=== PATIENT | female | born 1940 | race Caucasian/White ===

== ENCOUNTER → 2016-03-04 | Outpatient (CLI) | payer MEDICARE ==
[~2016-03-04] MED LIST: ACETAMINOPHEN-H1 TA2 PO; B-1100 M1 PO; B12,B-12,B 12500 MC1 PO; BACTRIM DS 8001 TA1 PO; CARAFATE1 GM/10 ML PO; CELEXA20 MG PO; CELEXA40 MG PO; COLACE100 MG PO; COREG3.125 MG PO; COUMADIN1 M1 PO; Coumadin3 MG PO; Coumadin5 MG PO; ENOXAPARIN80 MG/0.2 SC; HYDROCODONE BIT1 T11 PO; LASIX20 MG PO; LOVENOX100 MG/1 M PO; Lovenox40 MG/0.4 SC; METOPROLOL50 MG PO; MOM30 M1 PO; MOTRIN800 MG PO; NORTRIPTYLINE10 MG PO; NORVASC2.5 MG PO; PERCOCET 325 MG1 TA3 PO; PERCOCET 325 MG1 TA4 PO; PRILOSEC20 M1 PO; PRILOSEC20 MG PO; PRILOSEC40 M1 PO; PRILOSEC40 MG PO; VESICARE5 MG PO; VICODIN 5-3001 EACH PO; VICODIN 5/500 505 MG PO; XARE20MG PO; XARELTO10 PO; ZANAFLEX4 MG PO
== END | disposition home or self-care (01) ==
LOC: CARD 07:27
DX: I48.91 Unspecified atrial fibrillation (principal); Z79.899 Other long term (current) drug therapy

== ENCOUNTER → 2016-12-03 | Outpatient (CLI) | payer MEDICARE | END | disposition home or self-care (01) | LOC: RAD 18:45 | DX: M19.011 Primary osteoarthritis, right shoulder (principal); Z98.890 Other specified postprocedural states ==

== ENCOUNTER 2017-03-10 13:48 | Inpatient (IN) | payer MEDICARE ==
[2017-03-10] VITALS (8 sets, daily range): BP systolic 124–142; BP diastolic 33–61
[~2017-03-10] VITALS: Ht 157 cm; Wt 80.7 kg
[2017-03-10 14:40] LABS: HEMATOCRIT 38.1 % (37.0-47.0); HEMOGLOBIN 12.3 g/dl (12.0-16.0); MEAN CELL VOLUME 98.4 fl (81.0-99.0); MEAN CORPUSCULAR HGB 31.8 pg (27.0-31.0); MEAN CORPUSCULAR HGB CONC 32.3 g/dl (33.0-37.0); MEAN PLATELET VOLUME 10.1 fl (9.6-12.3); PLATELET COUNT AUTOMATED 312 10*3/uL (130-400); RED BLOOD COUNT 3.87 10*6/uL (4.10-5.10); WHITE BLOOD COUNT 14.7 10*3/uL (4.8-10.8)
[2017-03-10 14:51] LABS: BILIRUBIN NEGATIVE (NEGATIVE); BLOOD NEGATIVE (NEGATIVE); CLARITY CLEAR (CLEAR); COLOR YELLOW (YELLOW); GLUCOSE NEGATIVE (NEGATIVE); KETONE 1+ (NEGATIVE); LEUKO ESTERASE NEGATIVE (NEGATIVE); NITRITE POSITIVE (NEGATIVE); PH 5.5 (5.0-9.0); SPECIFIC GRAVITY <= 1.005 (1.005-1.030)
[2017-03-10 14:56] LABS: ALBUMIN 3.6 gm/dl (3.1-4.5); ALKALINE PHOSPHATASE 74 U/L (45-117); BUN 16 mg/dl (7-24); CHLORIDE 100 mmol/L (98-107); CREATININE 0.82 mg/dL (0.55-1.02); LIPASE 118 U/L (73-393); SGOT/AST 10 IU/L (3-35); SGPT/ALT 7 U/L (12-78); SODIUM 138 mmol/L (136-145); TOTAL PROTEIN 8.2 gm/dL (6.4-8.2)
[2017-03-10 15:00] LABS: TOTAL CELLS COUNTED 100 #CELLS
[2017-03-10 15:01] LABS: PLATELET SUFFICIENCY NORMAL (NORMAL)
[2017-03-10 15:02] LABS: POLYCHROMASIA SLIGHT
[2017-03-10 15:03] LABS: BACTERIA TRACE; EPITHELIAL CELLS 20-25; RBC 0-2 rbc/hpf (0-2); WBC 0-2 wbc/hpf (0-5)
[2017-03-10] MEDS ORDERED: SINEMET 25-1001 EACH PO (20:07)
[2017-03-10] MEDS ORDERED: VITAMIN D5000 UNI1 PO (20:08)
[2017-03-10] MEDS ORDERED: NATURE'S BLEND F1 MG PO (20:10)
[2017-03-10] MEDS ORDERED: TRINTELLIX20 MG PO (20:12)
[2017-03-10] MEDS ORDERED: VITAMIN B150 MG PO (20:14)
[2017-03-10] MEDS ORDERED: MAGNESIUM400 MG PO (20:15)
[2017-03-10] MEDS ORDERED: COQ-10100 MG PO (20:15)
[2017-03-10] MEDS ORDERED: DIAZEPAM5 MG PO (20:17)
[2017-03-10] MEDS ORDERED: OMEGA 3 1,0001 EACH PO (20:18)
[2017-03-10] MEDS ORDERED: CEROVITE SENIO1 EACH PO (20:19)
[2017-03-10 21:23] LABS: INTERNATIONAL NORM RATIO 4.1 (2.0-3.5)
[2017-03-10] MEDS ORDERED: ACAMPROSATE CA333 M1 PO (23:02)
[2017-03-11] VITALS: BP 110/50
[2017-03-11 07:19] LABS: BASO % 0.3 % (0.0-1.0); EOS % 0.2 % (1.0-4.0); HEMATOCRIT 32.4 % (37.0-47.0); HEMOGLOBIN 10.5 g/dl (12.0-16.0); LYMPH # 1.2 10*3/uL (1.3-4.4); LYMPH % 12.8 % (27.0-41.0); MEAN CELL VOLUME 100.3 fl (81.0-99.0); MEAN CORPUSCULAR HGB 32.5 pg (27.0-31.0); MEAN CORPUSCULAR HGB CONC 32.4 g/dl (33.0-37.0); MEAN PLATELET VOLUME 10.6 fl (9.6-12.3); MONO % 10.8 % (3.0-9.0); NEUT # 7.2 10*3/uL (2.3-7.9); NEUT % 74.1 % (47.0-73.0); PLATELET COUNT AUTOMATED 238 10*3/uL (130-400); RED BLOOD COUNT 3.23 10*6/uL (4.10-5.10); RED CELL DISTRI WIDTH 13.2 % (0-14.5); WHITE BLOOD COUNT 9.7 10*3/uL (4.8-10.8)
[2017-03-11 07:38] LABS: BUN 10 mg/dl (7-24); CHLORIDE 105 mmol/L (98-107); CHOLESTEROL 128 mg/dL (<200); CREATININE 0.69 mg/dL (0.55-1.02); HDL CHOLESTEROL 38 mg/dl (40-60); LDL CHOLESTEROL 69 mg/dL (9-159); PHOSPHOROUS 2.5 mg/dL (2.5-4.9); POTASSIUM 3.7 mmol/L (3.5-5.1); SODIUM 141 mmol/L (136-145); TRIGLYCERIDES 105 mg/dl (<150); VLDL CHOLESTEROL 21 mg/dL (6-40)
[2017-03-11 07:46] LABS: INTERNATIONAL NORM RATIO 3.3 (2.0-3.5)
[2017-03-11 08:00] VITALS: BP 107/34
[2017-03-11 08:08] LABS: VITAMIN D, 25-HYDROXY 33.8 ng/mL (30-100)
[2017-03-11 12:00] VITALS: BP 115/50
[2017-03-11 16:00] VITALS: BP 127/65
[2017-03-11 20:00] VITALS: BP 118/41
[2017-03-12] VITALS: BP 112/51
[2017-03-12 07:24] LABS: BASO % 0.3 % (0.0-1.0); EOS # 0.1 10*3/uL (0.0-0.4); EOS % 0.6 % (1.0-4.0); HEMOGLOBIN 10.1 g/dl (12.0-16.0); LYMPH # 1.3 10*3/uL (1.3-4.4); LYMPH % 12.8 % (27.0-41.0); MEAN CELL VOLUME 99.1 fl (81.0-99.0); MEAN CORPUSCULAR HGB 31.3 pg (27.0-31.0); MEAN CORPUSCULAR HGB CONC 31.6 g/dl (33.0-37.0); MEAN PLATELET VOLUME 10.6 fl (9.6-12.3); MONO # 1.1 10*3/uL (0.1-1.0); MONO % 11.1 % (3.0-9.0); NEUT # 7.5 10*3/uL (2.3-7.9); NEUT % 73.7 % (47.0-73.0); PLATELET COUNT AUTOMATED 253 10*3/uL (130-400); RED BLOOD COUNT 3.23 10*6/uL (4.10-5.10); WHITE BLOOD COUNT 10.2 10*3/uL (4.8-10.8)
[2017-03-12 07:29] LABS: INTERNATIONAL NORM RATIO 2.3 (2.0-3.5)
[2017-03-12 08:00] VITALS: BP 116/56
[2017-03-12 12:00] VITALS: BP 121/60
[2017-03-12 16:00] VITALS: BP 101/45
[2017-03-12 20:00] VITALS: BP 110/56
[2017-03-13] VITALS: BP 106/50
[2017-03-13 07:51] LABS: BASO % 0.3 % (0.0-1.0); EOS % 0.4 % (1.0-4.0); HEMATOCRIT 31.7 % (37.0-47.0); HEMOGLOBIN 10.2 g/dl (12.0-16.0); LYMPH # 1.2 10*3/uL (1.3-4.4); MEAN CELL VOLUME 99.1 fl (81.0-99.0); MEAN CORPUSCULAR HGB 31.9 pg (27.0-31.0); MEAN CORPUSCULAR HGB CONC 32.2 g/dl (33.0-37.0); MEAN PLATELET VOLUME 10.5 fl (9.6-12.3); MONO % 10.7 % (3.0-9.0); NEUT # 6.8 10*3/uL (2.3-7.9); NEUT % 74.2 % (47.0-73.0); PLATELET COUNT AUTOMATED 256 10*3/uL (130-400); RED CELL DISTRI WIDTH 13.1 % (0-14.5); WHITE BLOOD COUNT 9.1 10*3/uL (4.8-10.8)
[2017-03-13 08:00] VITALS: BP 124/62
[2017-03-13 12:00] VITALS: BP 107/52
[2017-03-13 16:00] VITALS: BP 113/52
[2017-03-13 20:00] VITALS: BP 98/39
[2017-03-13 20:30] VITALS: BP 132/66
[2017-03-14] VITALS: BP 111/52
[2017-03-14 07:09] LABS: INTERNATIONAL NORM RATIO 1.9 (2.0-3.5)
[2017-03-14 07:38] LABS: BASO % 0.3 % (0.0-1.0); EOS % 0.5 % (1.0-4.0); HEMATOCRIT 31.4 % (37.0-47.0); LYMPH # 1.4 10*3/uL (1.3-4.4); LYMPH % 15.8 % (27.0-41.0); MEAN CELL VOLUME 98.7 fl (81.0-99.0); MEAN CORPUSCULAR HGB 31.4 pg (27.0-31.0); MEAN CORPUSCULAR HGB CONC 31.8 g/dl (33.0-37.0); MEAN PLATELET VOLUME 10.8 fl (9.6-12.3); MONO # 0.8 10*3/uL (0.1-1.0); MONO % 8.8 % (3.0-9.0); NEUT # 6.3 10*3/uL (2.3-7.9); NEUT % 72.4 % (47.0-73.0); PLATELET COUNT AUTOMATED 285 10*3/uL (130-400); RED BLOOD COUNT 3.18 10*6/uL (4.10-5.10); WHITE BLOOD COUNT 8.7 10*3/uL (4.8-10.8)
[2017-03-14 08:00] VITALS: BP 123/54
[2017-03-14] MEDS ORDERED: FLAGYL500 MG PO (09:31)
[2017-03-14] MEDS ORDERED: CIPRO500 MG PO (09:31)
== END 2017-03-14 12:01 | disposition home or self-care (01) | DRG 690 ==
LOC: ED 13:48 → 4E 17:55 → EDHOLD 17:55 → 4E 18:17
PROVIDERS: Hospitalist; Internal Medicine Hospice and Palliative Medicine; Nurse Practitioner Family; Student in an Organized Health Care Education/Training Program
DX: N30.01 Acute cystitis with hematuria (principal); G20 Parkinson's disease; I48.2 Chronic atrial fibrillation; K57.32 Diverticulitis of large intestine without perforation or abscess without bleeding; K21.9 Gastro-esophageal reflux disease without esophagitis; M19.90 Unspecified osteoarthritis, unspecified site; R19.00 Intra-abdominal and pelvic swelling, mass and lump, unspecified site; D72.810 Lymphocytopenia; I10 Essential (primary) hypertension; J45.909 Unspecified asthma, uncomplicated; F41.9 Anxiety disorder, unspecified; F32.9 Major depressive disorder, single episode, unspecified; F10.20 Alcohol dependence, uncomplicated; Z96.651 Presence of right artificial knee joint; R93.5 Abnormal findings on diagnostic imaging of other abdominal regions, including retroperitoneum; N32.9 Bladder disorder, unspecified; Z88.8 Allergy status to other drugs, medicaments and biological substances; Z88.0 Allergy status to penicillin; Z79.899 Other long term (current) drug therapy; Z87.440 Personal history of urinary (tract) infections; Z90.49 Acquired absence of other specified parts of digestive tract; Z98.51 Tubal ligation status; Z78.9 Other specified health status; Z90.721 Acquired absence of ovaries, unilateral; Z98.84 Bariatric surgery status; Z82.49 Family history of ischemic heart disease and other diseases of the circulatory system; Z83.6 Family history of other diseases of the respiratory system; Z79.01 Long term (current) use of anticoagulants

== ENCOUNTER → 2017-04-08 | Day surgery (SDC) | payer MEDICARE ==
[~2017-04-08] VITALS: Ht 157.4 cm; Wt 79.4 kg
[~2017-04-08] MED LIST changes: +ACAMPROSATE CA333 M1 PO; +CEROVITE SENIO1 EACH PO; +CIPRO500 MG PO; +COQ-10100 MG PO; +DIAZEPAM5 MG PO; +FLAGYL500 MG PO; +MAGNESIUM400 MG PO; +NATURE'S BLEND F1 MG PO; +OMEGA 3 1,0001 EACH PO; +SINEMET 25-1001 EACH PO; +TRINTELLIX20 MG PO; +VITAMIN B150 MG PO; +VITAMIN D5000 UNI1 PO
[2017-04-08 07:31] VITALS: BP 124/66
[2017-04-08 08:34] VITALS: BP 122/57
[2017-04-08 08:49] VITALS: BP 145/58
[2017-04-08 09:01] VITALS: BP 133/55
== END ==
LOC: SDC 04-03 08:00
DX: R10.32 Left lower quadrant pain (principal); R19.4 Change in bowel habit; K57.30 Diverticulosis of large intestine without perforation or abscess without bleeding; J45.909 Unspecified asthma, uncomplicated; I10 Essential (primary) hypertension; K21.9 Gastro-esophageal reflux disease without esophagitis; Z86.718 Personal history of other venous thrombosis and embolism; F41.9 Anxiety disorder, unspecified; F32.9 Major depressive disorder, single episode, unspecified; Z90.49 Acquired absence of other specified parts of digestive tract; Z98.51 Tubal ligation status; Z82.49 Family history of ischemic heart disease and other diseases of the circulatory system; Z88.0 Allergy status to penicillin; Z88.8 Allergy status to other drugs, medicaments and biological substances

== ENCOUNTER → 2017-04-23 | Outpatient (CLI) | payer MEDICARE | END | disposition home or self-care (01) | LOC: MAMMO 12:42 | DX: Z12.31 Encounter for screening mammogram for malignant neoplasm of breast (principal) ==

== ENCOUNTER → 2018-01-05 | Outpatient (CLI) | payer MEDICARE ==
--- NOTE | ~2018-01-05 | SLPIE ---
[place], [place] DATA REVIEWER INITIAL EVALUATION NAME: FADIA DAVIS UNIT #: [id number] ROOM: DOCTOR: CAROL ANN STEPHENSON MD Speech Language Pathology Initial Evaluation Page 1 1 of Patient Name: FADIA DAVIS Date: 01/05/2018 09:55 AM : 1940 SOC Date: 01/05/2018 [facility] Provider #: [id number] Treating Clinician: ALLA Etienne-DATA REVIEWER Referring Physician: CAROL ANN STEPHENSON Patient Information Address: [address] [place] [address] [address] Physician: CAROL ANN STEPHENSON Physician #: City, [facility], Zip: [place], [place] [address] Occupation: Unknown # of Approved Visits: 0 Gender: Female Foreign Languages Department Chair: TIRSO MARTINEZ Rehabilitation Information / History Onset Date Code Description Primary Diagnosis: 01/05/2018 A0000 NO DIAGNOSIS SENT TO THE [employer] INTERFACE Subjective Comments: Initial evaluation created to initiate the electronic medical record. Please see [employer] for details. Rehabilitation Information / History Clinical Findings Functional Goals Functional Limitation Reporting Swallowing G8996 - Swallowing functional limitation, current status at therapy episode outset and at reporting intervals Current Status: CI - At least 1 percent but less than 20 percent impaired, limited or restricted G8997 - Swallowing functional limitation, projected goal status, at therapy episode outset, at reporting intervals, and at discharge or to end reporting Goal Status: CI - At least 1 percent but less than 20 percent impaired, limited or restricted G8998 - Swallowing functional limitation, discharge status, at discharge from therapy or to end reporting Discharge Status: CI - At least 1 percent but less than 20 percent impaired, limited or restricted 01/20/2018 12:42:44 PM ALLA Etienne-DATA REVIEWER Date/Time [place], [place] DATA REVIEWER INITIAL EVALUATION NAME: FADIA DAVIS UNIT #: [id number] ROOM: DOCTOR: CAROL ANN STEPHENSON MD [facility] License #: [id number] CM:SEMAJ 1002 1002 [facility]
--- NOTE | ~2018-01-05 | SLPPOC ---
[place], [place] [employer]ING [employer] PLAN OF CARE NAME: FADIA DAVIS UNIT #: [id number] ROOM: DOCTOR: CAROL ANN STEPHENSON MD Speech Language Pathology Plan of Care Page 1 1 (Initial Evaluation) of Patient Name: FADIA DAVIS Date: 01/05/2018 09:55 AM : 1940 SOC Date: 01/05/2018 [facility] Provider #: [id number] Treating Clinician: ALLA Etienne-ICING COATER Referring Physician: CAROL ANN STEPHENSON 1 Visits From SOC: Onset Date Description Code Primary Diagnosis: 01/05/2018 A0000 NO DIAGNOSIS SENT TO THE [facility] INTERFACE Subjective Comments: Initial evaluation created to initiate the electronic medical record. Please see [employer] for details. Initial Level Goals Functional Limitation Reporting Swallowing G8996 - Swallowing functional limitation, current status at therapy episode outset and at reporting intervals Current Status: CI - At least 1 percent but less than 20 percent impaired, limited or restricted G8997 - Swallowing functional limitation, projected goal status, at therapy episode outset, at reporting intervals, and at discharge or to end reporting Goal Status: CI - At least 1 percent but less than 20 percent impaired, limited or restricted G8998 - Swallowing functional limitation, discharge status, at discharge from therapy or to end reporting Discharge Status: CI - At least 1 percent but less than 20 percent impaired, limited or restricted 01/20/2018 12:42:44 PM CAROL ANN STEPHENSON Date/Time ALLA Etienne-YVROSE Date I certify the need for these services furnished under this plan of treatment while under my care. State License #: [id number] CM:SLPPOC 1002 1002 [facility]
--- NOTE | ~2018-01-05 | SLPPN ---
[place], [place] SHEETING [employer]ER PROGRESS NOTE NAME: FADIA DAVIS UNIT #: [id number] ROOM: DOCTOR: SACHIN IVAN,CAROL ANN Speech Language Pathology Treatment Note Page 1 1 of Patient Name: FADIA DAVIS Date: 01/05/2018 09:56 AM : 1940 SOC Date: 01/05/2018 [facility] Provider #: [id number] Treating Clinician: ALLA Etienne-SHEETING PULLER Referring Physician: CAROL ANN STEPHENSON Onset Date Description Code Primary Diagnosis: 01/05/2018 A0000 NO DIAGNOSIS SENT TO THE [facility] INTERFACE Time In: 09:00 AM Time Out: 10:00 AM [employer] Interventions and CPT Codes Consisted of: CPT Code Modifiers Minutes Units MOTION FLUOROSCOPY/SWALLOW 46471 60 1 Total Minutes: 60 Total Timed Minutes: 0 Total Untimed Minutes: 60 Total Units: 1 Total Timed Units: 0 Total Untimed Units: 1 01/05/2018 9:57:28 AM ALLA Etienne-YVROSE Date/Time State License #: [id number] CM:YVROSEPN 1002 1002 [facility]
--- NOTE | ~2018-01-05 | PROC NOTE ---
[place], [place] PROCEDURE NOTE NAME: FADIA DAVIS [facility] #: [id number] UNIT #: [id number] ROOM: DOCTOR: RACH VALENTEANN BIRTHDATE: [birth year] DOS: 01/05/2018 MODIFIED BARIUM SWALLOW ORDERING PHYSICIAN: Dr. Agustin. RADIOLOGIST: Dr. Duffy. BACKGROUND INFORMATION: The patient is a 77-year-old female who is seen for a modified barium swallow. This test was ordered to view the pharyngeal phase of the swallow. The patient reported pain when swallowing and foods (especially meats and dry foods) sticking after swallowing them. MEDICAL HISTORY: Significant for Parkinson disease, AFib and depression. The patient was alert and oriented and able to follow all commands during the assessment. The patient presented with respiratory skills within normal limits during the assessment. Oral peripheral examination revealed presence of natural teeth, which were in good condition. Lingual, labial, and buccal skills were within normal limits in terms of strength, range of motion, and coordination. The patient was able to volitionally cough and swallow. The patient currently receives a regular diet and thin liquids. METHODS AND MATERIALS USED FOR THE EXAM: The patient was positioned in the lateral plane and the exam was viewed under fluoroscopy. The patient was presented with a variety of consistencies to assess swallowing skills including applesauce mixed with barium presented in teaspoon full amount, barium coated cookie and sandwich taken in bite size pieces and thin liquid barium taken by cup and straw. ORAL PHASE: The patient achieved adequate labial seal around cup, spoon and straw with no anterior loss. Bolus formation and mastication were adequate. Mild piecemeal swallow was noted with solids. Oral transit was within normal limits. Otherwise, tongue to palate contact was within normal limits. Tongue retraction within normal limits. Velar functioning was within normal limits with no nasal regurgitation. PHARYNGEAL PHASE: Unremarkable. ESOPHAGEAL PHASE: This phase of the swallow was not formally assessed during this exam. IMPRESSIONS AND RECOMMENDATIONS: Based upon assessment results, this 77-year-old patient presents with oral and pharyngeal swallowing skills that are within functional limits with all consistencies. Mild piecemeal swallow was observed with solids. No penetration, aspiration or residue was observed with any consistency. Recommend patient remain on regular diet and thin liquids. Recommend safe swallow strategies such as small bites and sips, chewing thoroughly, alternating liquid and solid and moistening foods as appropriate. Results and recommendations were shared with the patient and her daughter and [place], [place] PROCEDURE NOTE NAME: FADIA DAVIS UNIT #: [id number] ROOM: DOCTOR: JOHN VALETNE BIRTHDATE: [birth year] they verbalized understanding. No followup treatment is warranted at this time. Thank you very much for this referral. Should you have any questions regarding this patient, please contact the speech pathologist at [phone]. JOHN VALENTE CM:PROCNOTE:PROCEDURE NOTE [id number] JOHN VALENTE
== END | disposition home or self-care (01) ==
LOC: RAD/SH 08:59
DX: R13.10 Dysphagia, unspecified (principal); K21.9 Gastro-esophageal reflux disease without esophagitis; R07.9 Chest pain, unspecified; G20 Parkinson's disease

== ENCOUNTER 2018-04-20 17:55 | Emergency (ER) | payer MEDICARE ==
[~2018-04-20] VITALS: Ht 157.4 cm; Wt 72.6 kg
--- NOTE | ~2018-04-20 | EKG ---
[place], [place] ELECTROCARDIOGRAM REPORT NAME: FADIA DAVIS UNIT #: [id number] ROOM: DOCTOR: EPIPHANY DRAFT REPORT BIRTHDATE: [birth year] [facility] Test Date: 2018-04-20 Test Time: 18:41:17 Pat Name: FADIA DAVIS Department: ED Room: Gender: F Plant Operations Coordinator: Meg Moran : 1940 Requested By: LATANYA BRIDGES PA-C Order Number: [id number] Reading MD: Dakota Cantu MD Measurements Intervals [place] Rate: 50 P: CT: QRS: -13 QRSD: 90 T: -21 QT: 605 QTc: 552 Interpretive Statements Atrial fibrillation Abnormal R-wave progression, late transition Inferior infarct, old Prolonged QT interval Electronically Signed On 04-21-2018 4:01:45 PST by Dakota Cantu MD CM:EKGRPT:ELECTROCARDIOGRAM REPORT [id number] LATANYA BRIDGES PA-C EPIPHANY DRAFT REPORT LATANYA BRIDGES PA-C
[2018-04-20 17:56] VITALS: BP 158/62
[2018-04-20 18:38] LABS: BASO # 0.1 10*3/uL (0.0-0.1); BASO % 0.8 % (0.0-1.0); EOS # 0.1 10*3/uL (0.0-0.4); EOS % 1.2 % (1.0-4.0); HEMATOCRIT 40.4 % (37.0-47.0); HEMOGLOBIN 13.2 g/dl (12.0-16.0); LYMPH # 1.8 10*3/uL (1.3-4.4); MEAN CELL VOLUME 103.1 fl (81.0-99.0); MEAN CORPUSCULAR HGB 33.7 pg (27.0-31.0); MEAN CORPUSCULAR HGB CONC 32.7 g/dl (33.0-37.0); MEAN PLATELET VOLUME 9.8 fl (9.6-12.3); MONO # 0.8 10*3/uL (0.1-1.0); MONO % 12.3 % (3.0-9.0); NEUT # 3.7 10*3/uL (2.3-7.9); NEUT % 56.6 % (47.0-73.0); PLATELET COUNT AUTOMATED 230 10*3/uL (130-400); RED BLOOD COUNT 3.92 10*6/uL (4.10-5.10); RED CELL DISTRI WIDTH 13.3 % (0-14.5); WHITE BLOOD COUNT 6.5 10*3/uL (4.8-10.8)
[2018-04-20 18:58] LABS: ALBUMIN 3.5 gm/dl (3.1-4.5); ALKALINE PHOSPHATASE 86 U/L (45-117); BUN 21 mg/dl (7-24); CHLORIDE 105 mmol/L (98-107); POTASSIUM 4.1 mmol/L (3.5-5.1); SGOT/AST 13 IU/L (3-35); SGPT/ALT 9 U/L (12-78); SODIUM 140 mmol/L (136-145); TOTAL PROTEIN 7.5 gm/dL (6.4-8.2)
[2018-04-20 19:03] LABS: BILIRUBIN NEGATIVE (NEGATIVE); BLOOD NEGATIVE (NEGATIVE); CLARITY CLEAR (CLEAR); COLOR YELLOW (YELLOW); GLUCOSE NEGATIVE (NEGATIVE); KETONE TRACE (NEGATIVE); LEUKO ESTERASE 1+ (NEGATIVE); NITRITE NEGATIVE (NEGATIVE); UROBILINOGEN 0.2 E.U./dl (0.2-1.0)
[2018-04-20 19:10] LABS: BACTERIA 1+; MUCOUS 2+
[2018-04-20] MEDS ORDERED: CIPRO500 MG PO (20:23)
[2018-04-20] MEDS ORDERED: ULTRAM50 MG PO (20:23)
[2018-06-10] MEDS ORDERED: MACROBID100 M1 PO (19:56)
[2018-06-10] MEDS ORDERED: ELIQUIS2.5 M1 PO (19:56)
[2018-06-10] MEDS ORDERED: ARICEPT5 M1 PO (19:57)
[2018-06-10] MEDS ORDERED: PROZAC40 M1 PO (19:57)
== END 2018-04-20 20:50 | disposition home or self-care (01) ==
LOC: ED 17:55
PROVIDERS: Physician Assistant
DX: S00.12XA Contusion of left eyelid and periocular area, initial encounter (principal); N39.0 Urinary tract infection, site not specified; R07.81 Pleurodynia; Z88.1 Allergy status to other antibiotic agents; Z88.0 Allergy status to penicillin; Z88.8 Allergy status to other drugs, medicaments and biological substances; Z79.01 Long term (current) use of anticoagulants; Z79.899 Other long term (current) drug therapy; Z90.49 Acquired absence of other specified parts of digestive tract; W19.XXXA Unspecified fall, initial encounter; Y93.89 Activity, other specified; Y92.098 Other place in other non-institutional residence as the place of occurrence of the external cause; Y99.8 Other external cause status

== ENCOUNTER → 2018-06-10 | Outpatient (CLI) | payer MEDICARE ==
[~2018-06-10] MED LIST changes: +ARICEPT5 M1 PO; +ELIQUIS2.5 M1 PO; +MACROBID100 M1 PO; +PROZAC40 M1 PO; +ULTRAM50 MG PO
== END | disposition home or self-care (01) ==
LOC: RAD 13:21
DX: M47.817 Spondylosis without myelopathy or radiculopathy, lumbosacral region (principal); M16.0 Bilateral primary osteoarthritis of hip

== ENCOUNTER → 2018-08-19 | Outpatient (CLI) | payer MEDICARE | END | disposition home or self-care (01) | LOC: US 06:30 | DX: R10.2 Pelvic and perineal pain (principal); R23.2 Flushing; Z90.710 Acquired absence of both cervix and uterus; Z90.722 Acquired absence of ovaries, bilateral ==

== ENCOUNTER → 2018-09-09 | Outpatient (CLI) | payer MEDICARE | END | disposition home or self-care (01) | LOC: CARD 06:43 | DX: R10.84 Generalized abdominal pain (principal); R06.02 Shortness of breath; Z90.49 Acquired absence of other specified parts of digestive tract ==

== ENCOUNTER 2019-03-31 10:45 | Emergency (ER) | payer MEDICARE ==
[~2019-03-31] VITALS: Ht 162.5 cm; Wt 75.3 kg
[2019-03-31 10:53] VITALS: BP 164/64
[2019-03-31 11:45] LABS: BASO % 0.3 % (0.0-1.0); EOS % 0.4 % (1.0-4.0); HEMATOCRIT 35.4 % (37.0-47.0); HEMOGLOBIN 10.3 g/dl (12.0-16.0); LYMPH # 1.6 10*3/uL (1.3-4.4); LYMPH % 21.8 % (27.0-41.0); MEAN CELL VOLUME 93.9 fl (81.0-99.0); MEAN CORPUSCULAR HGB 27.3 pg (27.0-31.0); MEAN CORPUSCULAR HGB CONC 29.1 g/dl (33.0-37.0); MONO # 0.8 10*3/uL (0.1-1.0); MONO % 10.3 % (3.0-9.0); NEUT # 4.9 10*3/uL (2.3-7.9); NEUT % 66.4 % (47.0-73.0); PLATELET COUNT AUTOMATED 301 10*3/uL (130-400); RED BLOOD COUNT 3.77 10*6/uL (4.10-5.10); RED CELL DISTRI WIDTH 15.7 % (0-14.5); WHITE BLOOD COUNT 7.4 10*3/uL (4.8-10.8)
[2019-03-31 11:57] LABS: ACT PARTIAL THROMBO TIME 29.7 SECONDS (20.0-32.1)
[2019-03-31 12:07] LABS: ALBUMIN 3.7 gm/dl (3.1-4.5); BUN 14 mg/dl (7-24); CHLORIDE 106 mmol/L (98-107); CREATININE 0.86 mg/dL (0.55-1.02); LIPASE 137 U/L (73-393); POTASSIUM 4.8 mmol/L (3.5-5.1); SGOT/AST 8 IU/L (3-35); SGPT/ALT 8 U/L (12-78); SODIUM 140 mmol/L (136-145)
[2019-03-31 12:09] LABS: ALKALINE PHOSPHATASE 100 U/L (45-117); TOTAL PROTEIN 7.6 gm/dL (6.4-8.2)
[2019-03-31 12:11] LABS: TROPONIN I < 0.015 ng/ml (<0.045)
[2019-03-31 13:08] LABS: COLOR YELLOW (YELLOW)
[2019-03-31 13:09] LABS: BACTERIA 4+; RBC 21-30 rbc/hpf (0-2); WBC TNTC wbc/hpf (0-5)
[2019-03-31 13:10] LABS: BILIRUBIN NEGATIVE (NEGATIVE); BLOOD 2+ (NEGATIVE); CLARITY CLOUDY (CLEAR); GLUCOSE NEGATIVE (NEGATIVE); KETONE NEGATIVE (NEGATIVE); LEUKO ESTERASE 3+ (NEGATIVE); NITRITE POSITIVE (NEGATIVE); PH 6.5 (5.0-9.0); SPECIFIC GRAVITY 1.015 (1.005-1.030); UROBILINOGEN 0.2 E.U./dl (0.2-1.0)
[2019-03-31] MEDS ORDERED: PYRIDIUM200 M1 PO (13:29)
[2019-03-31] MEDS ORDERED: MACROBID100 M1 PO (13:30)
== END 2019-03-31 13:29 | disposition home or self-care (01) ==
LOC: ED 10:45
PROVIDERS: Physician Assistant
DX: N39.0 Urinary tract infection, site not specified (principal); J45.909 Unspecified asthma, uncomplicated; I48.91 Unspecified atrial fibrillation; I10 Essential (primary) hypertension; K21.9 Gastro-esophageal reflux disease without esophagitis; Z88.1 Allergy status to other antibiotic agents; Z88.8 Allergy status to other drugs, medicaments and biological substances; Z88.0 Allergy status to penicillin; Z79.899 Other long term (current) drug therapy; Z90.49 Acquired absence of other specified parts of digestive tract; Z96.651 Presence of right artificial knee joint; Z86.718 Personal history of other venous thrombosis and embolism

== ENCOUNTER → 2019-05-21 | Outpatient (CLI) | payer MEDICARE ==
[~2019-05-21] MED LIST changes: +PYRIDIUM200 M1 PO
== END | disposition home or self-care (01) ==
LOC: RAD 10:40
DX: M85.88 Other specified disorders of bone density and structure, other site (principal); M47.817 Spondylosis without myelopathy or radiculopathy, lumbosacral region; Z98.890 Other specified postprocedural states

== ENCOUNTER → 2019-05-28 | Outpatient (CLI) | payer MEDICARE ==
[2019-05-28 12:01] LABS: BILIRUBIN NEGATIVE (NEGATIVE); CLARITY CLOUDY (CLEAR); COLOR YELLOW (YELLOW); GLUCOSE NEGATIVE (NEGATIVE); KETONE NEGATIVE (NEGATIVE)
[2019-05-28 12:02] LABS: BLOOD TRACE-INTACT (NEGATIVE); LEUKO ESTERASE 2+ (NEGATIVE); NITRITE POSITIVE (NEGATIVE); SPECIFIC GRAVITY 1.015 (1.005-1.030); UROBILINOGEN 0.2 E.U./dl (0.2-1.0)
[2019-05-28 12:06] LABS: HEMATOCRIT 40.9 % (37.0-47.0); HEMOGLOBIN 12.6 g/dl (12.0-16.0); MEAN CELL VOLUME 97.8 fl (81.0-99.0); MEAN CORPUSCULAR HGB 30.1 pg (27.0-31.0); MEAN CORPUSCULAR HGB CONC 30.8 g/dl (33.0-37.0); MEAN PLATELET VOLUME 10.5 fl (9.6-12.3); PLATELET COUNT AUTOMATED 315 10*3/uL (130-400); RED BLOOD COUNT 4.18 10*6/uL (4.10-5.10); RED CELL DISTRI WIDTH 20.5 % (0-14.5); WHITE BLOOD COUNT 11.5 10*3/uL (4.8-10.8)
[2019-05-28 12:13] LABS: BACTERIA 4+; RBC TNTC rbc/hpf (0-2); WBC TNTC wbc/hpf (0-5)
[2019-05-28 13:08] LABS: BASOPHILS 1 % (0-1); OVALOCYTES FEW; PLATELET SUFFICIENCY NORMAL (NORMAL); POLYCHROMASIA SLIGHT; TOTAL CELLS COUNTED 100 #CELLS
== END | disposition home or self-care (01) ==
LOC: LAB 10:27 → MRI 11:00
PROVIDERS: Orthopaedic Surgery
DX: M47.817 Spondylosis without myelopathy or radiculopathy, lumbosacral region (principal); M48.061 Spinal stenosis, lumbar region without neurogenic claudication; N39.0 Urinary tract infection, site not specified; Z98.890 Other specified postprocedural states

== ENCOUNTER 2019-11-28 21:19 | Emergency (ER) | payer MEDICARE ==
[2019-11-28 21:36] VITALS: BP 137/47
[2019-11-28 21:47] LABS: HEMATOCRIT 41.1 % (37.0-47.0); MEAN CORPUSCULAR HGB 31.6 pg (27.0-31.0); MEAN CORPUSCULAR HGB CONC 31.9 g/dl (33.0-37.0); MEAN PLATELET VOLUME 9.7 fl (9.6-12.3); PLATELET COUNT AUTOMATED 283 10*3/uL (130-400); RED BLOOD COUNT 4.15 10*6/uL (4.10-5.10); RED CELL DISTRI WIDTH 14.2 % (0-14.5); WHITE BLOOD COUNT 11.1 10*3/uL (4.8-10.8)
[2019-11-28 21:51] LABS: BILIRUBIN Negative (Negative); BLOOD Negative (Negative); CLARITY Clear (Clear); COLOR Yellow (Yellow); GLUCOSE Negative (Negative); KETONE Negative (Negative); LEUKO ESTERASE 1+ (Negative); NITRITE Negative (Negative); UROBILINOGEN 0.2 E.U./dl (0.0-1.0)
[2019-11-28 21:59] LABS: RBC 0-2 rbc/hpf (0-2)
[2019-11-28 22:00] LABS: BACTERIA TRACE
[2019-11-28 22:01] LABS: HYALINE CAST 0-2
[2019-11-28 22:01] LABS: ALBUMIN 3.6 gm/dl (3.1-4.5); ALKALINE PHOSPHATASE 78 U/L (45-117); BUN 23 mg/dl (7-24); CHLORIDE 108 mmol/L (98-107); CREATININE 0.68 mg/dL (0.55-1.02); POTASSIUM 3.9 mmol/L (3.5-5.1); SGOT/AST 16 IU/L (3-35); SGPT/ALT 23 U/L (12-78); SODIUM 137 mmol/L (136-145); TOTAL PROTEIN 7.3 gm/dL (6.4-8.2)
[2019-11-28 22:06] LABS: TOTAL CELLS COUNTED 100 #CELLS
[2019-11-28 22:09] LABS: POLYCHROMASIA SLIGHT
[2019-11-28 22:12] LABS: OVALOCYTES FEW
[2019-11-28 22:13] LABS: PLATELET SUFFICIENCY NORMAL (NORMAL)
== END 2019-11-28 23:30 | disposition home or self-care (01) ==
LOC: ED 21:19
PROVIDERS: Internal Medicine
DX: F10.10 Alcohol abuse, uncomplicated (principal); Z79.899 Other long term (current) drug therapy; Z88.1 Allergy status to other antibiotic agents; Z88.8 Allergy status to other drugs, medicaments and biological substances; Z88.0 Allergy status to penicillin; Y90.9 Presence of alcohol in blood, level not specified

== ENCOUNTER → 2020-01-06 | Outpatient (CLI) | payer MEDICARE ==
[2020-01-06 09:32] LABS: BASO % 0.5 % (0.0-1.0); EOS % 0.3 % (1.0-4.0); HEMATOCRIT 41.5 % (37.0-47.0); MEAN CORPUSCULAR HGB 31.9 pg (27.0-31.0); MEAN CORPUSCULAR HGB CONC 31.6 g/dl (33.0-37.0); MEAN PLATELET VOLUME 9.6 fl (9.6-12.3); MONO # 0.6 10*3/uL (0.1-1.0); NEUT # 3.6 10*3/uL (2.3-7.9); NEUT % 57.5 % (47.0-73.0); PLATELET COUNT AUTOMATED 254 10*3/uL (130-400); RED BLOOD COUNT 4.11 10*6/uL (4.10-5.10); RED CELL DISTRI WIDTH 14.7 % (0-14.5); WHITE BLOOD COUNT 6.3 10*3/uL (4.8-10.8)
[2020-01-06 10:03] LABS: FREE T4 0.78 ng/dl (0.76-1.46)
[2020-01-06 10:09] LABS: THYROID STIM HORMONE (HS) 1.01 uIU/ml (0.358-4.75)
== END | disposition home or self-care (01) ==
LOC: LAB 09:16
PROVIDERS: ATTEND Internal Medicine Endocrinology, Diabetes & Metabolism
DX: E03.9 Hypothyroidism, unspecified (principal); D50.9 Iron deficiency anemia, unspecified

== ENCOUNTER → 2021-07-09 | Outpatient (CLI) | payer MEDICARE ==
[~2021-07-09] MED LIST changes: +ELIQUIS5 M1 PO; +KLONOPIN1 M1 PO; +LIPITOR80 MG PO; +METOPROLOL SUCC50 M1 PO; +TRAZODONE50 MG PO; +VIIBRYD20 M1 PO
== END | disposition home or self-care (01) ==
LOC: CARD 02:03
PROVIDERS: ATTEND Internal Medicine Cardiovascular Disease
DX: I20.8 Other forms of angina pectoris (principal); R06.02 Shortness of breath; R06.00 Dyspnea, unspecified

== ENCOUNTER → 2021-07-11 | Outpatient (CLI) | payer MEDICARE ==
[2021-07-11 10:36] LABS: THYROID STIM HORMONE (HS) 0.719 uIU/ml (0.358-4.75)
== END | disposition home or self-care (01) ==
LOC: US 07-10 16:00 → LAB 08:52
PROVIDERS: Internal Medicine Cardiovascular Disease; ATTEND Family Medicine
DX: K74.60 Unspecified cirrhosis of liver (principal); K76.89 Other specified diseases of liver; K76.0 Fatty (change of) liver, not elsewhere classified; R06.00 Dyspnea, unspecified; I20.8 Other forms of angina pectoris; Z90.49 Acquired absence of other specified parts of digestive tract

== ENCOUNTER 2021-10-04 13:20 | Inpatient (IN) | payer MEDICARE ==
[~2021-10-04] VITALS: Ht 157.4 cm; Wt 65.4 kg
[~2021-10-04 13:20] MED LIST changes: +METAMUCIL FIBE3.4 GM PO; +NYAMYC15 GM T; +SODIUM-POTASSI1 EACH PO
[2021-10-04 13:22] VITALS: BP 124/41
[2021-10-04 13:43] LABS: BASO # 0.1 10*3/uL (0.0-0.1); BASO % 0.8 % (0.0-1.0); EOS # 0.1 10*3/uL (0.0-0.4); EOS % 0.9 % (1.0-4.0); HEMATOCRIT 39.5 % (37.0-47.0); LYMPH # 1.8 10*3/uL (1.3-4.4); LYMPH % 26.8 % (27.0-41.0); MEAN CELL VOLUME 99.7 fl (81.0-99.0); MEAN CORPUSCULAR HGB 32.3 pg (27.0-31.0); MEAN CORPUSCULAR HGB CONC 32.4 g/dl (33.0-37.0); MEAN PLATELET VOLUME 10.7 fl (9.6-12.3); MONO # 0.5 10*3/uL (0.1-1.0); MONO % 7.2 % (3.0-9.0); NEUT # 4.2 10*3/uL (2.3-7.9); NEUT % 63.4 % (47.0-73.0); PLATELET COUNT AUTOMATED 174 10*3/uL (130-400); RED BLOOD COUNT 3.96 10*6/uL (4.10-5.10); RED CELL DISTRI WIDTH 13.4 % (0-14.5); WHITE BLOOD COUNT 6.6 10*3/uL (4.8-10.8)
[2021-10-04 13:57] LABS: ACT PARTIAL THROMBO TIME 36.5 SECONDS (20.0-32.1); INTERNATIONAL NORM RATIO 1.2 (2.0-3.5)
[2021-10-04 13:59] LABS: ALKALINE PHOSPHATASE 127 U/L (45-117); BUN 13 mg/dl (7-24); CHLORIDE 108 mmol/L (98-107); CREATININE 0.97 mg/dL (0.55-1.02); POTASSIUM 3.9 mmol/L (3.5-5.1); SGOT/AST 84 IU/L (3-35); SGPT/ALT 21 U/L (12-78); SODIUM 137 mmol/L (136-145); TOTAL PROTEIN 7.7 gm/dL (6.4-8.2)
[2021-10-04 14:03] LABS: LIPASE 5781 U/L (73-393)
[2021-10-04 14:30] VITALS: BP 132/49
[2021-10-04 19:09] VITALS: BP 161/52
[2021-10-04] MEDS ORDERED: TRAZODONE100 MG PO (19:53)
[2021-10-04 21:11] VITALS: BP 127/42
[2021-10-04 22:15] VITALS: BP 132/68
[2021-10-05 00:07] LABS: BILIRUBIN Negative (Negative); BLOOD Negative (Negative); CLARITY Clear (Clear); COLOR Yellow (Yellow); GLUCOSE Negative (Negative); KETONE Negative (Negative); LEUKO ESTERASE Negative (Negative); NITRITE Negative (Negative); UROBILINOGEN 0.2 E.U./dl (0.0-1.0)
[2021-10-05 06:39] LABS: BASO % 0.3 % (0.0-1.0); EOS # 0.1 10*3/uL (0.0-0.4); EOS % 1.2 % (1.0-4.0); HEMATOCRIT 35.8 % (37.0-47.0); LYMPH # 1.7 10*3/uL (1.3-4.4); LYMPH % 29.7 % (27.0-41.0); MEAN CELL VOLUME 101.4 fl (81.0-99.0); MEAN CORPUSCULAR HGB 33.1 pg (27.0-31.0); MEAN CORPUSCULAR HGB CONC 32.7 g/dl (33.0-37.0); MEAN PLATELET VOLUME 11.1 fl (9.6-12.3); MONO # 0.6 10*3/uL (0.1-1.0); MONO % 11.1 % (3.0-9.0); NEUT # 3.3 10*3/uL (2.3-7.9); NEUT % 56.8 % (47.0-73.0); PLATELET COUNT AUTOMATED 166 10*3/uL (130-400); RED BLOOD COUNT 3.53 10*6/uL (4.10-5.10); RED CELL DISTRI WIDTH 13.5 % (0-14.5); WHITE BLOOD COUNT 5.8 10*3/uL (4.8-10.8)
[2021-10-05 07:34] LABS: BUN 13 mg/dl (7-24); CHLORIDE 112 mmol/L (98-107); CHOLESTEROL 96 mg/dL (<200); CREATININE 0.82 mg/dL (0.55-1.02); LDL CHOLESTEROL 27 mg/dL (9-159); SGOT/AST 68 IU/L (3-35); SGPT/ALT 79 U/L (12-78); SODIUM 144 mmol/L (136-145); TOTAL PROTEIN 6.6 gm/dL (6.4-8.2); TRIGLYCERIDES 79 mg/dl (<150)
[2021-10-05 07:43] LABS: ALKALINE PHOSPHATASE 119 U/L (45-117); FREE T4 0.94 ng/dl (0.76-1.46)
[2021-10-05 08:00] VITALS: BP 132/60
[2021-10-05 08:14] LABS: VITAMIN D, 25-HYDROXY 26.4 ng/mL (30-100)
[2021-10-05 12:00] VITALS: BP 115/45
[2021-10-05 16:00] VITALS: BP 132/52
[2021-10-05 20:00] VITALS: BP 119/40
[2021-10-06] VITALS: BP 126/49
[2021-10-06 06:35] LABS: BASO % 0.5 % (0.0-1.0); EOS # 0.1 10*3/uL (0.0-0.4); EOS % 1.4 % (1.0-4.0); HEMATOCRIT 35.1 % (37.0-47.0); LYMPH % 35.5 % (27.0-41.0); MEAN CELL VOLUME 100.6 fl (81.0-99.0); MEAN CORPUSCULAR HGB CONC 32.8 g/dl (33.0-37.0); MEAN PLATELET VOLUME 10.8 fl (9.6-12.3); MONO # 0.7 10*3/uL (0.1-1.0); MONO % 11.8 % (3.0-9.0); NEUT # 2.8 10*3/uL (2.3-7.9); NEUT % 50.3 % (47.0-73.0); PLATELET COUNT AUTOMATED 159 10*3/uL (130-400); RED BLOOD COUNT 3.49 10*6/uL (4.10-5.10); RED CELL DISTRI WIDTH 13.7 % (0-14.5); WHITE BLOOD COUNT 5.6 10*3/uL (4.8-10.8)
[2021-10-06 07:17] LABS: ALKALINE PHOSPHATASE 107 U/L (45-117); BUN 18 mg/dl (7-24); CHLORIDE 112 mmol/L (98-107); CREATININE 1.05 mg/dL (0.55-1.02); LIPASE 182 U/L (73-393); SGOT/AST 50 IU/L (3-35); SGPT/ALT 47 U/L (12-78); SODIUM 141 mmol/L (136-145); TOTAL PROTEIN 6.6 gm/dL (6.4-8.2)
[2021-10-06 08:00] VITALS: BP 119/45
== END 2021-10-06 12:42 | disposition home or self-care (01) | DRG 313 ==
LOC: ED 13:20 → EDHOLD 15:48 → 4E 15:48 → EDHOLD 21:43 → 4E 22:07
PROVIDERS: Emergency Medicine; Internal Medicine; Student in an Organized Health Care Education/Training Program; ADMIT Family Medicine; ATTEND Family Medicine
DX: R07.89 Other chest pain (principal); I48.20 Chronic atrial fibrillation, unspecified; Z96.651 Presence of right artificial knee joint; M19.90 Unspecified osteoarthritis, unspecified site; J45.909 Unspecified asthma, uncomplicated; D75.89 Other specified diseases of blood and blood-forming organs; R73.9 Hyperglycemia, unspecified; R74.01 Elevation of levels of liver transaminase levels; F32.A Depression, unspecified; K21.00 Gastro-esophageal reflux disease with esophagitis, without bleeding; E55.9 Vitamin D deficiency, unspecified; R29.6 Repeated falls; Z66 Do not resuscitate; Z90.721 Acquired absence of ovaries, unilateral; Z88.0 Allergy status to penicillin; Z88.1 Allergy status to other antibiotic agents; Z88.2 Allergy status to sulfonamides; Z88.8 Allergy status to other drugs, medicaments and biological substances; Z90.49 Acquired absence of other specified parts of digestive tract; Z98.51 Tubal ligation status; Z82.49 Family history of ischemic heart disease and other diseases of the circulatory system; Z83.6 Family history of other diseases of the respiratory system; Z79.82 Long term (current) use of aspirin; Z98.84 Bariatric surgery status; Z78.9 Other specified health status

== ENCOUNTER → 2021-10-31 | Outpatient (CLI) | payer MEDICARE ==
[~2021-10-31] MED LIST changes: +TRAZODONE100 MG PO
== END | disposition home or self-care (01) ==
LOC: CARD 09:23
PROVIDERS: ATTEND Internal Medicine Cardiovascular Disease
DX: I08.2 Rheumatic disorders of both aortic and tricuspid valves (principal); R94.31 Abnormal electrocardiogram [ECG] [EKG]

== ENCOUNTER → 2021-11-13 | Outpatient (CLI) | payer MEDICARE ==
[2021-11-13 15:14] LABS: BUN 15 mg/dl (7-24); CHLORIDE 110 mmol/L (98-107); CREATININE 0.88 mg/dL (0.55-1.02); POTASSIUM 4.3 mmol/L (3.5-5.1); SODIUM 141 mmol/L (136-145)
== END | disposition home or self-care (01) ==
LOC: LAB 14:29
PROVIDERS: ATTEND Family Medicine
DX: E87.6 Hypokalemia (principal)

== ENCOUNTER → 2022-03-27 | Outpatient (CLI) | payer MEDICARE ==
[2022-03-27 13:07] LABS: BASO # 0.1 10*3/uL (0.0-0.1); BASO % 0.6 % (0.0-1.0); EOS % 0.4 % (1.0-4.0); HEMATOCRIT 43.9 % (37.0-47.0); LYMPH # 1.5 10*3/uL (1.3-4.4); LYMPH % 17.2 % (27.0-41.0); MEAN CELL VOLUME 101.6 fl (81.0-99.0); MEAN CORPUSCULAR HGB 32.6 pg (27.0-31.0); MEAN CORPUSCULAR HGB CONC 32.1 g/dl (33.0-37.0); MEAN PLATELET VOLUME 10.8 fl (9.6-12.3); MONO # 0.7 10*3/uL (0.1-1.0); MONO % 8.1 % (3.0-9.0); NEUT # 6.2 10*3/uL (2.3-7.9); NEUT % 72.8 % (47.0-73.0); PLATELET COUNT AUTOMATED 237 10*3/uL (130-400); RED BLOOD COUNT 4.32 10*6/uL (4.10-5.10); RED CELL DISTRI WIDTH 13.1 % (0-14.5); WHITE BLOOD COUNT 8.5 10*3/uL (4.8-10.8)
[2022-03-27 13:26] LABS: BUN 12 mg/dl (9-23); CHLORIDE 104 mmol/L (98-107); POTASSIUM 4.4 mmol/L (3.4-5.1)
== END | disposition home or self-care (01) ==
LOC: LAB 12:06
PROVIDERS: ATTEND Surgery
DX: C18.3 Malignant neoplasm of hepatic flexure (principal)

== ENCOUNTER → 2022-08-02 | Outpatient (CLI) | payer MEDICARE ==
[2022-08-02 11:50] LABS: BASO % 0.5 % (0.0-1.0); EOS % 0.1 % (1.0-4.0); HEMATOCRIT 45.3 % (37.0-47.0); LYMPH # 1.3 10*3/uL (1.3-4.4); LYMPH % 14.8 % (27.0-41.0); MEAN CELL VOLUME 98.1 fl (81.0-99.0); MEAN CORPUSCULAR HGB 32.5 pg (27.0-31.0); MEAN CORPUSCULAR HGB CONC 33.1 g/dl (33.0-37.0); MEAN PLATELET VOLUME 10.7 fl (9.6-12.3); MONO # 0.7 10*3/uL (0.1-1.0); MONO % 8.5 % (3.0-9.0); NEUT # 6.5 10*3/uL (2.3-7.9); NEUT % 75.1 % (47.0-73.0); PLATELET COUNT AUTOMATED 213 10*3/uL (130-400); RED BLOOD COUNT 4.62 10*6/uL (4.10-5.10); RED CELL DISTRI WIDTH 13.3 % (0-14.5); WHITE BLOOD COUNT 8.7 10*3/uL (4.8-10.8)
[2022-08-02 12:18] LABS: POTASSIUM 4.1 mmol/L (3.4-5.1); TOTAL PROTEIN 8.6 gm/dL (6.0-8.0)
== END | disposition home or self-care (01) ==
LOC: LAB 10:58
PROVIDERS: Physical Therapist; ATTEND Family Medicine
DX: I10 Essential (primary) hypertension (principal); E53.8 Deficiency of other specified B group vitamins; R53.83 Other fatigue; R19.7 Diarrhea, unspecified; R30.0 Dysuria; R05.9 Cough, unspecified

== ENCOUNTER → 2022-09-12 | Outpatient (CLI) | payer MEDICARE ==
[2022-09-13 06:08] LABS: TOTAL PROTEIN, SERUM 6.2 g/dL (6.0-8.5)
[2022-09-13 12:08] LABS: A/G RATIO 1.1 (0.7-1.7); ALBUMIN 3.2 g/dL (2.9-4.4); ALPHA-1-GLOBULIN 0.3 g/dL (0.0-0.4); ALPHA-2-GLOBULIN 0.7 g/dL (0.4-1.0); BETA GLOBULIN 0.8 g/dL (0.7-1.3); GAMMA GLOBULIN 1.1 g/dL (0.4-1.8); M-SPIKE Not Observed g/dL (Not Observed)
[2022-09-13 14:08] LABS: FREE KAPPA LIGHT CHAINS 58.5 mg/L (3.3-19.4); FREE LAMBDA LIGHT CHAINS 29.3 mg/L (5.7-26.3)
== END | disposition home or self-care (01) ==
LOC: LAB 14:56
PROVIDERS: ATTEND Student in an Organized Health Care Education/Training Program
DX: R77.1 Abnormality of globulin (principal)

== ENCOUNTER 2023-02-13 09:15 | Emergency (ER) | payer MEDICARE ==
[~2023-02-13] VITALS: Wt 68.0 kg
[2023-02-13 09:17] VITALS: BP 150/59
[2023-02-13 09:31] LABS: BASO % 0.3 % (0.0-1.0); EOS # 0.1 10*3/uL (0.0-0.4); EOS % 0.8 % (1.0-4.0); HEMATOCRIT 39.5 % (37.0-47.0); LYMPH # 1.6 10*3/uL (1.3-4.4); LYMPH % 24.8 % (27.0-41.0); MEAN CELL VOLUME 99.7 fl (81.0-99.0); MEAN CORPUSCULAR HGB 30.3 pg (27.0-31.0); MEAN CORPUSCULAR HGB CONC 30.4 g/dl (33.0-37.0); MEAN PLATELET VOLUME 9.9 fl (9.6-12.3); MONO # 0.6 10*3/uL (0.1-1.0); MONO % 9.8 % (3.0-9.0); NEUT % 63.3 % (47.0-73.0); PLATELET COUNT AUTOMATED 186 10*3/uL (130-400); RED BLOOD COUNT 3.96 10*6/uL (4.10-5.10); RED CELL DISTRI WIDTH 13.9 % (0-14.5); WHITE BLOOD COUNT 6.2 10*3/uL (4.8-10.8)
[2023-02-13 09:47] LABS: ACT PARTIAL THROMBO TIME 32.2 SECONDS (20.0-32.1)
[2023-02-13 09:56] LABS: ALKALINE PHOSPHATASE 75 U/L (46-116); BUN 14 mg/dl (9-23); CHLORIDE 107 mmol/L (98-107); LIPASE 35 U/L (12-53); POTASSIUM 4.6 mmol/L (3.4-5.1); TOTAL PROTEIN 7.4 gm/dL (6.0-8.0)
[2023-02-13 09:59] LABS: SGPT/ALT < 7 U/L (5-49)
[2023-02-13 10:13] LABS: BILIRUBIN Negative (Negative); BLOOD Negative (Negative); CLARITY Clear (Clear); COLOR Yellow (Yellow); GLUCOSE Negative (Negative); KETONE Trace (Negative); LEUKO ESTERASE 1+ (Negative); NITRITE Negative (Negative); UROBILINOGEN 0.2 E.U./dl (0.0-1.0)
[2023-02-13 10:32] LABS: BACTERIA 2+
[2023-02-13 10:33] LABS: WBC 16-20 wbc/hpf (0-5)
[2023-02-13] MEDS ORDERED: CIPRO500 MG PO (12:19)
== END 2023-02-13 12:22 | disposition home or self-care (01) ==
LOC: ED 09:15
PROVIDERS: Emergency Medicine
DX: R07.89 Other chest pain (principal); N39.0 Urinary tract infection, site not specified; J45.909 Unspecified asthma, uncomplicated; I10 Essential (primary) hypertension; K21.9 Gastro-esophageal reflux disease without esophagitis; Z86.718 Personal history of other venous thrombosis and embolism; F41.9 Anxiety disorder, unspecified; I48.91 Unspecified atrial fibrillation; Z88.1 Allergy status to other antibiotic agents; Z88.0 Allergy status to penicillin; Z88.2 Allergy status to sulfonamides; Z88.8 Allergy status to other drugs, medicaments and biological substances; Z98.890 Other specified postprocedural states; Z90.49 Acquired absence of other specified parts of digestive tract; Z96.651 Presence of right artificial knee joint; Z98.51 Tubal ligation status; F10.10 Alcohol abuse, uncomplicated

== ENCOUNTER → 2023-12-02 | Outpatient (CLI) | payer MEDICARE ==
[2023-12-02 11:04] LABS: HEMATOCRIT 46.4 % (37.0-47.0); MEAN PLATELET VOLUME 10.3 fl (9.6-12.3); PLATELET COUNT AUTOMATED 238 10*3/uL (130-400); RED BLOOD COUNT 4.64 10*6/uL (4.10-5.10); RED CELL DISTRI WIDTH 16.9 % (0-14.5); WHITE BLOOD COUNT 20.8 10*3/uL (4.8-10.8)
[2023-12-02 11:07] LABS: MANUAL DIFF REFLEX YES
[2023-12-02 11:11] LABS: ALKALINE PHOSPHATASE 158 U/L (46-116); BUN 25 mg/dl (9-23); CHLORIDE 106 mmol/L (98-107); POTASSIUM 4.1 mmol/L (3.4-5.1); SGPT/ALT 32 U/L (5-49); TOTAL PROTEIN 7.9 gm/dL (6.0-8.0)
[2023-12-02 11:34] LABS: ATYPICAL LYMPHS 1 % (0-0); TOTAL CELLS COUNTED 100 #CELLS
[2023-12-02 11:35] LABS: PLATELET SUFFICIENCY NORMAL (NORMAL)
[2023-12-02 11:36] LABS: BURR CELLS FEW
[2023-12-02 11:37] LABS: OVALOCYTES FEW
[2023-12-03 01:06] LABS: RBC 4.65 x10E6/uL (3.77-5.28)
[2023-12-04 06:09] LABS: G-6-PD, QUANT 372 (127-427)
== END | disposition home or self-care (01) ==
LOC: LAB 10:07
PROVIDERS: ATTEND Physician Assistant Medical
DX: R21 Rash and other nonspecific skin eruption (principal)

== ENCOUNTER → 2023-12-13 | Outpatient (CLI) | payer MEDICARE ==
[~2023-12-13] MED LIST changes: +IOHEXOL 300 MG/ML 100 ML VIAL IV ONE
== END | disposition home or self-care (01) ==
LOC: CT 01:27
PROVIDERS: ATTEND Family Medicine
DX: D47.2 Monoclonal gammopathy (principal); K57.30 Diverticulosis of large intestine without perforation or abscess without bleeding; I51.7 Cardiomegaly

== ENCOUNTER → 2024-01-09 | Outpatient (CLI) | payer MEDICARE ==
[~2024-01-09] MED LIST changes: -IOHEXOL 300 MG/ML 100 ML VIAL IV ONE
[2024-01-09 10:51] LABS: BASO # 0.1 10*3/uL (0.0-0.1); BASO % 0.8 % (0.0-1.0); EOS # 0.2 10*3/uL (0.0-0.4); EOS % 1.3 % (1.0-4.0); HEMATOCRIT 42.1 % (37.0-47.0); MEAN CELL VOLUME 100.5 fl (81.0-99.0); MEAN CORPUSCULAR HGB 31.5 pg (27.0-31.0); MEAN CORPUSCULAR HGB CONC 31.4 g/dl (33.0-37.0); MEAN PLATELET VOLUME 9.8 fl (9.6-12.3); MONO # 0.7 10*3/uL (0.1-1.0); MONO % 6.1 % (3.0-9.0); NEUT # 8.7 10*3/uL (2.3-7.9); NEUT % 75.5 % (47.0-73.0); PLATELET COUNT AUTOMATED 244 10*3/uL (130-400); RED BLOOD COUNT 4.19 10*6/uL (4.10-5.10); RED CELL DISTRI WIDTH 15.1 % (0-14.5); WHITE BLOOD COUNT 11.5 10*3/uL (4.8-10.8)
== END | disposition home or self-care (01) ==
LOC: LAB 10:25
PROVIDERS: ATTEND Orthopaedic Surgery
DX: R53.83 Other fatigue (principal); M79.659 Pain in unspecified thigh

== ENCOUNTER 2024-02-08 21:22 | Inpatient (IN) | payer MEDICARE ==
[~2024-02-08] VITALS: Ht 162.6 cm; Wt 81.6 kg
[2024-02-08 21:29] VITALS: BP 126/46
[2024-02-08] MEDS ORDERED: SODIUM CHLORIDE 0.9% 1,000 ML IV ONE (21:30)
[2024-02-08] MEDS ORDERED: IOHEXOL 300 MG/ML 100 ML VIAL IV ONE (21:30)
[2024-02-08 21:45] LABS: MEAN CELL VOLUME 97.1 fl (81.0-99.0); MEAN CORPUSCULAR HGB 31.8 pg (27.0-31.0); MEAN CORPUSCULAR HGB CONC 32.8 g/dl (33.0-37.0); PLATELET COUNT AUTOMATED 255 10*3/uL (130-400); RED BLOOD COUNT 4.12 10*6/uL (4.10-5.10); RED CELL DISTRI WIDTH 14.2 % (0-14.5); WHITE BLOOD COUNT 23.6 10*3/uL (4.8-10.8)
[2024-02-08 21:49] LABS: MANUAL DIFF REFLEX YES
[2024-02-08] MEDS ORDERED: VIIBRYD40 PO (21:59)
[2024-02-08] MEDS ORDERED: OMEPRAZOLE40 MG PO (22:00)
[2024-02-08] MEDS ORDERED: FEXOFENADINE H180 M1 PO (22:01)
[2024-02-08] MEDS ORDERED: OXYCODONE HCL10 M1 PO (22:01)
[2024-02-08] MEDS ORDERED: AMIODARONE HYD200 MG PO (22:02)
[2024-02-08] MEDS ORDERED: ROPINIROLE HYDRO1 MG PO (22:03)
[2024-02-08 22:06] LABS: ALKALINE PHOSPHATASE 118 U/L (46-116); BUN 29 mg/dl (9-23); CHLORIDE 99 mmol/L (98-107); LIPASE 32 U/L (12-53); POTASSIUM 4.3 mmol/L (3.4-5.1); TOTAL PROTEIN 7.5 gm/dL (6.0-8.0)
[2024-02-08 22:08] LABS: SGPT/ALT < 7 U/L (5-49)
[2024-02-08 22:11] LABS: BURR CELLS FEW; PLATELET SUFFICIENCY NORMAL (NORMAL); POLYCHROMASIA SLIGHT; TOTAL CELLS COUNTED 100 #CELLS
[2024-02-08] MEDS ORDERED: SODIUM CHLORIDE 0.9% 1,000 ML IV SCH (22:30)
[2024-02-08 23:34] LABS: BILIRUBIN Negative (Negative); BLOOD Negative (Negative); CLARITY Cloudy (Clear); COLOR Yellow (Yellow); GLUCOSE Negative (Negative); KETONE Negative (Negative); LEUKO ESTERASE Negative (Negative); NITRITE Negative (Negative); PH 5.5 (4.5-8.0); SPECIFIC GRAVITY >= 1.030 (1.001-1.030); UROBILINOGEN 0.2 E.U./dl (0.0-1.0)
[2024-02-08 23:41] LABS: BACTERIA 2+; COARSE GRANULAR CAST 21-30; EPITHELIAL CELLS 41-50
[2024-02-09] MEDS ORDERED: Meropenem 1 GM in SODIUM CHLORIDE 0.9% 100 ML IV ONE (00:30)
[2024-02-09] MEDS ORDERED: HYDROmorphONE Hydrochloride 0.5 MG/0.5 ML SYRINGE IV ONE (00:40)
[2024-02-09] MEDS ORDERED: Ondansetron Hydrochloride 4 MG/2 ML VIAL IV PRN (02:55)
[2024-02-09] MEDS ORDERED: ACETAMINOPHEN 325 MG TAB PO PRN (02:55)
[2024-02-09] MEDS ORDERED: ACETAMINOPHEN 650 MG SUPP R PRN (02:55)
[2024-02-09] MEDS ORDERED: Ketorolac Tromethamine 15 MG/ML VIAL IV PRN (03:05)
[2024-02-09] MEDS ORDERED: SODIUM CHLORIDE 0.9% 1,000 ML IV ONE (03:05)
[2024-02-09] MEDS ORDERED: fentaNYL CITRATE 100 MCG/2 ML VIAL IV PRN (03:05)
[2024-02-09 04:55] VITALS: BP 105/48
[2024-02-09] MEDS ORDERED: OMEPRAZOLE 20 MG CAP PO SCH (06:00)
[2024-02-09] MEDS ORDERED: METRONIDAZOLE 100 ML IV SCH (06:00)
[2024-02-09 06:26] LABS: ALKALINE PHOSPHATASE 105 U/L (46-116); BUN 22 mg/dl (9-23); CHLORIDE 104 mmol/L (98-107); CHOLESTEROL 72 mg/dL (<200); LDL CHOLESTEROL 28 mg/dL (9-159); POTASSIUM 4.3 mmol/L (3.4-5.1); TOTAL PROTEIN 6.5 gm/dL (6.0-8.0); TRIGLYCERIDES 63 mg/dl (<150); VITAMIN D, 25-HYDROXY 52.1 ng/mL (30-100)
[2024-02-09 06:28] LABS: ACT PARTIAL THROMBO TIME 34.5 SECONDS (20.0-32.1)
[2024-02-09 06:37] LABS: SGPT/ALT < 7 U/L (5-49)
[2024-02-09 07:03] LABS: HEMATOCRIT 37.6 % (37.0-47.0); MEAN CORPUSCULAR HGB 31.7 pg (27.0-31.0); MEAN CORPUSCULAR HGB CONC 31.4 g/dl (33.0-37.0); MEAN PLATELET VOLUME 10.3 fl (9.6-12.3); PLATELET COUNT AUTOMATED 216 10*3/uL (130-400); RED BLOOD COUNT 3.72 10*6/uL (4.10-5.10); RED CELL DISTRI WIDTH 14.5 % (0-14.5); WHITE BLOOD COUNT 22.2 10*3/uL (4.8-10.8)
[2024-02-09 07:11] LABS: MANUAL DIFF REFLEX YES; MEAN CELL VOLUME 101.1 fl (81.0-99.0)
[2024-02-09 08:28] LABS: PLATELET SUFFICIENCY NORMAL (NORMAL); TOTAL CELLS COUNTED 100 #CELLS
[2024-02-09] MEDS ORDERED: CIPROFLOXACIN 200 ML IV SCH (10:00)
[2024-02-09] MEDS ORDERED: VILAZADONE PO SCH (10:00)
[2024-02-09] MEDS ORDERED: APIXABAN 5 MG TAB PO SCH (10:00)
[2024-02-09] MEDS ORDERED: Ropinirole Hydrochloride 1 MG TAB PO SCH (10:00)
[2024-02-09] MEDS ORDERED: Amiodarone Hydrochloride 200 MG TAB PO SCH (10:00)
[2024-02-09] MEDS ORDERED: Carbidopa/Levodopa 25/100MG 1 TAB TAB PO SCH (10:00)
[2024-02-09] MEDS ORDERED: SODIUM CHLORIDE 0.9% 100 ML BAG IV ONE (10:05)
[2024-02-09] MEDS ORDERED: Meropenem 1 GM VIAL IV ONE (10:05)
[2024-02-09 10:10] VITALS: BP 106/66
[2024-02-09] MEDS ORDERED: METRONIDAZ500 MG/100 IV (12:24)
[2024-02-09] MEDS ORDERED: CIPROFLOXA400 MG/200 IV (12:24)
[2024-02-09 13:15] VITALS: BP 110/54
[2024-02-09] MEDS ORDERED: ATORVASTATIN CALCIUM 80 MG TAB PO SCH (22:00)
[2024-02-09] MEDS ORDERED: clonAZEPAM 1 MG TAB PO SCH (22:00)
[2024-02-09] MEDS ORDERED: Donepezil Hydrochloride 5 MG TAB PO SCH (22:00)
== END 2024-02-09 13:35 | disposition short-term general hospital (02) | DRG 872 ==
LOC: ED 21:22 → EDHOLD 02-09 02:33
PROVIDERS: Internal Medicine; ADMIT Internal Medicine; ATTEND Internal Medicine
DX: A41.9 Sepsis, unspecified organism (principal); K57.32 Diverticulitis of large intestine without perforation or abscess without bleeding; N39.0 Urinary tract infection, site not specified; E87.1 Hypo-osmolality and hyponatremia; E44.1 Mild protein-calorie malnutrition; Z68.45 Body mass index [BMI] 70 or greater, adult; I48.91 Unspecified atrial fibrillation; G20.A1 Parkinson's disease without dyskinesia, without mention of fluctuations; J45.909 Unspecified asthma, uncomplicated; F32.A Depression, unspecified; K21.9 Gastro-esophageal reflux disease without esophagitis; I10 Essential (primary) hypertension; R73.9 Hyperglycemia, unspecified; Z66 Do not resuscitate; K83.8 Other specified diseases of biliary tract; Z96.651 Presence of right artificial knee joint; Z93.3 Colostomy status; Z88.6 Allergy status to analgesic agent; Z88.1 Allergy status to other antibiotic agents; Z88.0 Allergy status to penicillin; Z88.8 Allergy status to other drugs, medicaments and biological substances; Z91.09 Other allergy status, other than to drugs and biological substances; Z79.899 Other long term (current) drug therapy; Z79.01 Long term (current) use of anticoagulants; Z79.2 Long term (current) use of antibiotics; Z90.49 Acquired absence of other specified parts of digestive tract; Z82.49 Family history of ischemic heart disease and other diseases of the circulatory system; Z82.5 Family history of asthma and other chronic lower respiratory diseases